=== PATIENT | male | born 1950 | race Caucasian/White ===

== ENCOUNTER 2016-05-19 10:49 | Emergency (ER) | payer OTHER, MEDICARE ==
[~2016-05-19] VITALS: Ht 157.5 cm; Wt 108.9 kg
[2016-05-19] MEDS ORDERED: RANI1TAB6 (11:16)
[2016-05-19] MEDS ORDERED: NS 500 ML IV ONE (13:00)
[2016-05-19] MEDS ORDERED: ONDANSETRON 4MG/2ML VIAL (J2405) IV ONE (13:00)
[2016-05-19] MEDS ORDERED: KETOROLAC 30 MG/ML VIAL (J1885) IV ONE (13:00)
[2016-05-19 13:33] LABS: BASO # 0.1 K/mm3 (0.0-0.2); BASO % 0.7 % (0.0-1.0); EOS % 0.4 % (0.0-3.0); LARGE UNSTAINED CELL # 0.1 K/mm3 (0.0-0.4); LYMPH # 0.9 K/mm3 (1.5-4.5); LYMPH % 8.6 % (24.0-44.0); MEAN CORPUSCULAR HEMOGLOBIN 26.8 pg (27.0-33.0); MEAN CORPUSCULAR HGB CONC 32.6 g/dl (32.0-36.5); MEAN CORPUSCULAR VOLUME 82.2 fl (80.0-96.0); MONO # 0.6 K/mm3 (0.0-0.8); MONO % 5.9 % (0.0-5.0); NEUTROPHILS # 8.1 K/mm3 (1.8-7.7); NEUTROPHILS % 83.3 % (36.0-66.0); PLATELET COUNT, AUTOMATED 241 k/mm3 (150-450); RED CELL DISTRIBUTION WIDTH 15.6 % (11.5-14.5); WHITE BLOOD COUNT 9.7 K/mm3 (4.0-10.0)
[2016-05-19 13:48] LABS: CREATININE FOR GFR 1.85 MG/DL (0.70-1.30)
--- NOTE | 2016-05-19 14:25 | REP ---
CT ABDOMEN AND PELVIS WITHOUT IV CONTRAST: CT abdomen and pelvis is performed. No IV contrast was administered. There is mild fibrotic changes in the visualized lung bases. The liver demonstrates a tiny cyst centrally. The spleen, adrenals and pancreas are unremarkable. There is edema surrounding the left kidney and left ureter with mild prominence of the renal pelvis. The findings likely represent a recently passed stone through the left ureter. No renal or ureteral calculus is seen currently and there is no evidence of a bladder calculus. There is no right hydronephrosis. There is mild scattered atherosclerotic calcification of the abdominal aorta without aneurysm. There is no adenopathy, free air or free fluid. No bowel inflammation is seen. There is no evidence of appendicitis. There is no evidence of a pelvic mass. IMPRESSION: Edema surrounding the left kidney and ureter with mildly prominent left renal pelvis likely represents a recently passed stone through the left ureter. Underlying pyelonephritis is not excluded. No fluid collection. No current evidence of renal, ureteral or bladder calculus. Signed by Larry Nur MD 05/19/2016 05:06 P
[2016-05-19] MEDS ORDERED: ZOFR4TAB3 PO (14:59)
[2016-05-19] MEDS ORDERED: ACET-159 PO (14:59)
[2016-05-19 15:26] VITALS: BP 136/84
== END 2016-05-19 15:29 | disposition home or self-care (01) ==
LOC: M ED 12:34
DX: N23 Unspecified renal colic (principal); N13.30 Unspecified hydronephrosis; R94.4 Abnormal results of kidney function studies
CPT/HCPCS: 36415; 74176; 80048; 81001; 85025; 87086; 96374; 96375; 99282; J1885; J2405

== ENCOUNTER → 2016-05-21 | Outpatient (CLI) | payer OTHER, MEDICARE ==
[~2016-05-21] MED LIST: ACET-159 PO; RANI1TAB6; ZOFR4TAB3 PO
[2016-05-21 07:55] LABS: CALCIUM LEVEL 8.3 MG/DL (8.8-10.2); CREATININE FOR GFR 1.59 MG/DL (0.70-1.30); GLOMERULAR FILTRATION RATE 46.5 (>49); POTASSIUM SERUM 4.1 MEQ/L (3.5-5.1)
== END ==
LOC: M LAB 06:50
PROVIDERS: ATTEND Physician Assistant Medical
DX: R94.4 Abnormal results of kidney function studies (principal)

== ENCOUNTER 2016-09-29 13:26 | Emergency (ER) | payer OTHER, MEDICARE ==
[~2016-09-29] VITALS: Ht 152.4 cm; Wt 113.6 kg
[2016-09-29] MEDS ORDERED: BAYE1TAB5 PO (13:38)
[2016-09-29] MEDS ORDERED: TYLE325T5 PO (13:38)
[2016-09-29 14:20] LABS: BASO # 0.1 K/mm3 (0.0-0.2); BASO % 1.1 % (0.0-1.0); EOS # 0.2 K/mm3 (0.0-0.50); EOS % 2.1 % (0.0-3.0); LARGE UNSTAINED CELL # 0.1 K/mm3 (0.0-0.4); LARGE UNSTAINED CELL % 1.6 % (0.0-4.0); LYMPH # 1.2 K/mm3 (1.5-4.5); LYMPH % 16.2 % (24.0-44.0); MEAN CORPUSCULAR HEMOGLOBIN 25.7 pg (27.0-33.0); MEAN CORPUSCULAR HGB CONC 31.2 g/dl (32.0-36.5); MEAN CORPUSCULAR VOLUME 82.3 fl (80.0-96.0); MONO # 0.6 K/mm3 (0.0-0.8); MONO % 8.3 % (0.0-5.0); NEUTROPHILS # 4.9 K/mm3 (1.8-7.7); NEUTROPHILS % 70.6 % (36.0-66.0); PLATELET COUNT, AUTOMATED 265 k/mm3 (150-450); RED CELL DISTRIBUTION WIDTH 16.4 % (11.5-14.5)
[2016-09-29 14:35] LABS: CALCIUM LEVEL 8.8 MG/DL (8.8-10.2); CREATININE FOR GFR 1.38 MG/DL (0.70-1.30); GLOMERULAR FILTRATION RATE 54.5 (>49)
--- NOTE | 2016-09-29 14:43 | REP ---
Duplex extremity venous ultrasound: Left lower extremity History: Left leg pain and swelling. Findings: The deep veins are anechoic and fully compressible from the groin to the popliteal fossa in the left lower extremity. Color flow imaging is homogeneous. Spectral Doppler interrogation demonstrates intact respiratory variation in flow and normal manual augmentation of flow. There is no evidence of deep vein thrombosis. Impression: Negative left lower extremity duplex venous ultrasound. No evidence of deep vein thrombosis. Signed by Alek Salamanca MD 09/29/2016 02:35 P
[2016-09-29 14:54] VITALS: BP 168/86
== END 2016-09-29 15:03 | disposition home or self-care (01) ==
LOC: M ED 13:26
DX: M79.662 Pain in left lower leg (principal); E78.5 Hyperlipidemia, unspecified; M54.9 Dorsalgia, unspecified; G89.29 Other chronic pain; K21.9 Gastro-esophageal reflux disease without esophagitis; F41.9 Anxiety disorder, unspecified; F32.9 Major depressive disorder, single episode, unspecified; F43.10 Post-traumatic stress disorder, unspecified; E66.9 Obesity, unspecified; Z87.442 Personal history of urinary calculi; Z87.891 Personal history of nicotine dependence

== ENCOUNTER 2016-11-04 09:04 | Emergency (ER) | payer MEDICARE ==
[~2016-11-04] VITALS: Ht 157.5 cm; Wt 114.1 kg
[~2016-11-04 09:04] MED LIST changes: +BAYE1TAB5 PO; +TYLE325T5 PO
[2016-11-04] MEDS ORDERED: IBUP-1022 PO (09:11)
[2016-11-04 10:03] VITALS: BP 181/95
== END 2016-11-04 10:20 | disposition home or self-care (01) ==
LOC: M ED 09:53
DX: K64.5 Perianal venous thrombosis (principal)

== ENCOUNTER → 2016-11-24 | Outpatient (REF) | payer MEDICARE ==
[~2016-11-24] MED LIST changes: +IBUP-1022 PO
== END ==
LOC: M SFHCCLAY 10:28
PROVIDERS: ATTEND Family Medicine
DX: Z11.59 Encounter for screening for other viral diseases (principal)
CPT/HCPCS: 86803; G0463

== ENCOUNTER → 2016-12-22 | Outpatient (REF) | payer MEDICARE | LOC: M SFHCCLAY 12:19 | PROVIDERS: ATTEND Family Medicine | DX: I10 Essential (primary) hypertension (principal); N18.3 Chronic kidney disease, stage 3 (moderate); Z53.8 Procedure and treatment not carried out for other reasons ==

== ENCOUNTER → 2017-09-17 | Outpatient (REF) | payer MEDICARE ==
[2017-09-17 16:51] LABS: ESTIMATED AVERAGE GLUCOSE 214 MG/DL (60-110); HEMOGLOBIN A1c 9.1 %
== END ==
LOC: M SFHCCLAY 13:51
DX: I10 Essential (primary) hypertension (principal); F32.1 Major depressive disorder, single episode, moderate; E11.9 Type 2 diabetes mellitus without complications
CPT/HCPCS: 83036

== ENCOUNTER → 2017-09-20 | Outpatient (REF) | payer MEDICARE ==
[2017-09-20 11:15] LABS: ANION GAP 6 MEQ/L (8-16); BLOOD UREA NITROGEN 16 MG/DL (7-18); CALCIUM LEVEL 8.9 MG/DL (8.8-10.2); CARBON DIOXIDE LEVEL 32 MEQ/L (21-32); CHLORIDE LEVEL 103 MEQ/L (98-107); CREATININE FOR GFR 1.45 MG/DL (0.70-1.30); GLOMERULAR FILTRATION RATE 51.4 (>49); GLUCOSE, FASTING 96 MG/DL (70-100); POTASSIUM SERUM 4.7 MEQ/L (3.5-5.1); SODIUM LEVEL 141 MEQ/L (136-145)
[2017-09-20 11:23] LABS: ESTIMATED AVERAGE GLUCOSE 128 MG/DL (60-110); HEMOGLOBIN A1c 6.1 %
== END ==
LOC: M SFHCCLAY 10:52
DX: E11.9 Type 2 diabetes mellitus without complications (principal); I10 Essential (primary) hypertension; F32.1 Major depressive disorder, single episode, moderate
CPT/HCPCS: 83036

== ENCOUNTER → 2018-04-05 | Outpatient (REF) | payer MEDICARE ==
[~2018-04-05] MED LIST changes: +ZOFR4TAB14 PO; -ZOFR4TAB3 PO
[2018-04-05 16:36] LABS: HEMATOCRIT 34.9 % (42.0-52.0); HEMOGLOBIN 10.6 g/dl (13.5-17.5); MEAN CORPUSCULAR HGB CONC 30.4 g/dl (32.0-36.5); MEAN CORPUSCULAR VOLUME 82.3 fl (80.0-96.0); PLATELET COUNT, AUTOMATED 311 10^3/uL (150-450); RED BLOOD COUNT 4.24 10^6/uL (4.30-6.10); WHITE BLOOD COUNT 9.1 10^3/uL (4.0-10.0)
[2018-04-05 16:44] LABS: ALBUMIN 3.6 GM/DL (3.2-5.2); BILIRUBIN,TOTAL 0.3 MG/DL (0.2-1.0); CREATININE FOR GFR 1.38 MG/DL (0.70-1.30); GLOMERULAR FILTRATION RATE 54.4 (>49); TOTAL PROTEIN 7.2 GM/DL (6.4-8.2)
[2018-04-05 16:53] LABS: HEMOGLOBIN A1c 6.3 %
== END ==
LOC: M SFHCCLAY 12:24
PROVIDERS: ATTEND Family Medicine
DX: E11.9 Type 2 diabetes mellitus without complications (principal); K92.2 Gastrointestinal hemorrhage, unspecified
CPT/HCPCS: 80053; 83036; 83540; 85027; G0463

== ENCOUNTER → 2018-09-02 | Outpatient (REF) | payer MEDICARE ==
[2018-09-02 12:52] LABS: HEMATOCRIT 35.2 % (42.0-52.0); HEMOGLOBIN 10.1 g/dl (13.5-17.5); MEAN CORPUSCULAR HEMOGLOBIN 22.7 pg (27.0-33.0); MEAN CORPUSCULAR HGB CONC 28.7 g/dl (32.0-36.5); MEAN CORPUSCULAR VOLUME 79.3 fl (80.0-96.0); PLATELET COUNT, AUTOMATED 338 10^3/uL (150-450); RED BLOOD COUNT 4.44 10^6/uL (4.30-6.10); WHITE BLOOD COUNT 7.8 10^3/uL (4.0-10.0)
[2018-09-02 12:59] LABS: PERCENT SATURATION 6.6 % (19.7-50.0)
== END ==
LOC: M SFHCCLAY 08:17
PROVIDERS: ATTEND Family Medicine
DX: D50.9 Iron deficiency anemia, unspecified (principal)

== ENCOUNTER → 2018-09-14 | Outpatient (REF) | payer MEDICARE ==
[2018-09-14 11:45] LABS: HEMATOCRIT 33.2 % (42.0-52.0); HEMOGLOBIN 9.7 g/dl (13.5-17.5); MEAN CORPUSCULAR HEMOGLOBIN 22.8 pg (27.0-33.0); MEAN CORPUSCULAR HGB CONC 29.2 g/dl (32.0-36.5); MEAN CORPUSCULAR VOLUME 78.1 fl (80.0-96.0); PLATELET COUNT, AUTOMATED 292 10^3/uL (150-450); RED BLOOD COUNT 4.25 10^6/uL (4.30-6.10); WHITE BLOOD COUNT 7.4 10^3/uL (4.0-10.0)
[2018-09-14 11:57] LABS: CALCIUM LEVEL 8.9 MG/DL (8.8-10.2); CREATININE FOR GFR 1.35 MG/DL (0.70-1.30); GLOMERULAR FILTRATION RATE 55.6 (>42); POTASSIUM SERUM 3.9 MEQ/L (3.5-5.1)
[2018-09-14 12:43] LABS: HEMOGLOBIN A1c 6.3 %
== END ==
LOC: M SFHCCLAY 07:47
PROVIDERS: ATTEND Family Medicine
DX: D50.9 Iron deficiency anemia, unspecified (principal); E11.9 Type 2 diabetes mellitus without complications

== ENCOUNTER 2018-10-20 09:09 | Day surgery (SDC) | payer MEDICARE ==
[~2018-10-20] VITALS: Ht 157.5 cm; Wt 83.0 kg
[~2018-10-20 09:09] MED LIST changes: +ACET1TAB55 PO; +ATOR1TAB19 PO; +CITA20TA6 PO; +FEROCAP3 PO; +GLIM2TAB PO; +HYDR12.55 PO; +METF500T13 PO; +MULT-40 PO; +NS 1,000 ML IV ONE; +OLME20TA2 PO; +OMEP10CASR PO; +VERA180C PO
[2018-10-20] MEDS ORDERED: LIDOCAINE 2% INJ 100 MG/5 ML SDV (FOR ANES.) As Ordered ONE (11:00)
[2018-10-20] MEDS ORDERED: PROPOFOL 200 MG/20 ML VIAL As Ordered ONE ×2 (11:00→11:29)
--- NOTE | 2018-10-20 11:08 | ROOR ---
Patient Name: Carl Dupree Procedure Date: 10/20/2018 10:55 AM Date of : 1950 Age: 68 Room: [facility] Gender: Male Note Status: Finalized Procedure: Upper GI endoscopy Indications: Iron deficiency anemia Providers: Miles Lord Jr, MD Referring MD: Jason Hutchins MD Requesting Provider: Medicines: Propofol per Anesthesia Complications: No immediate complications. Procedure: Pre-Anesthesia Assessment: - Prior to the procedure, a History and Physical was performed, and patient medications and allergies were reviewed. The patient is competent. The risks and benefits of the procedure and the sedation options and risks were discussed with the patient. All questions were answered and informed consent was obtained. Patient identification and proposed procedure were verified by the physician and the nurse in the pre-procedure area and in the procedure room. Mental Status Examination: alert and oriented. Airway Examination: normal oropharyngeal airway and neck mobility. Respiratory Examination: clear to auscultation. CV Examination: normal. ASA Grade Assessment: III - A patient with severe systemic disease. After reviewing the risks and benefits, the patient was deemed in satisfactory condition to undergo the procedure. The anesthesia plan was to use moderate sedation / analgesia (conscious sedation). Immediately prior to administration of medications, the patient was re-assessed for adequacy to receive sedatives. The heart rate, respiratory rate, oxygen saturations, blood pressure, adequacy of pulmonary ventilation, and response to care were monitored throughout the procedure. The physical status of the patient was re-assessed after the procedure. The Endoscope was introduced through the mouth, and advanced to the second part of duodenum. The upper GI endoscopy was accomplished without difficulty. The patient tolerated the procedure well. Findings: The upper third of the esophagus, middle third of the esophagus and lower third of the esophagus were normal. The cardia, gastric fundus, gastric body, gastric antrum, prepyloric region of the stomach and pylorus were normal. The duodenal bulb, first portion of the duodenum and second portion of the duodenum were normal. Impression: - Normal upper third of esophagus, middle third of esophagus and lower third of esophagus. - Normal cardia, gastric fundus, gastric body, antrum, prepyloric region of the stomach and pylorus. - Normal duodenal bulb, first portion of the duodenum and second portion of the duodenum. - No specimens collected. Recommendation: - Discharge patient to home (ambulatory). - Return to my office as previously scheduled. Miles Lord MD Miles Lord Jr, MD 10/20/2018 11:08:12 AM Electronically signed by Miles Lord Jr, MD Number of Addenda: 0 Note Initiated On: 10/20/2018 10:55 AM Estimated Blood Loss: Estimated blood loss: none.
--- NOTE | 2018-10-20 11:36 | ROOR ---
Patient Name: Carl Dupree Procedure Date: 10/20/2018 10:56 AM Date of : 1950 Age: 68 Room: [facility] Gender: Male Note Status: Finalized Procedure: Colonoscopy Indications: Iron deficiency anemia Providers: Miles Lord Jr, MD Referring MD: Jason Hutchins MD Requesting Provider: Medicines: Propofol per Anesthesia Complications: No immediate complications. Procedure: Pre-Anesthesia Assessment: - Prior to the procedure, a History and Physical was performed, and patient medications and allergies were reviewed. The patient is competent. The risks and benefits of the procedure and the sedation options and risks were discussed with the patient. All questions were answered and informed consent was obtained. Patient identification and proposed procedure were verified by the physician and the nurse in the pre-procedure area and in the procedure room. Mental Status Examination: alert and oriented. Airway Examination: normal oropharyngeal airway and neck mobility. Respiratory Examination: clear to auscultation. CV Examination: normal. ASA Grade Assessment: II - A patient with mild systemic disease. After reviewing the risks and benefits, the patient was deemed in satisfactory condition to undergo the procedure. The anesthesia plan was to use moderate sedation / analgesia (conscious sedation). Immediately prior to administration of medications, the patient was re-assessed for adequacy to receive sedatives. The heart rate, respiratory rate, oxygen saturations, blood pressure, adequacy of pulmonary ventilation, and response to care were monitored throughout the procedure. The physical status of the patient was re-assessed after the procedure. The Colonoscope was introduced through the anus and advanced to the cecum, identified by appendiceal orifice and ileocecal valve. The colonoscopy was performed without difficulty. The patient tolerated the procedure well. The quality of the bowel preparation was adequate. Findings: A few small-mouthed diverticula were found in the sigmoid colon. Seven polyps were found in the descending colon, transverse colon and ascending colon. The polyps were small in size. These polyps were removed with a hot snare. Resection was complete, but the polyp tissue was only partially retrieved. The rectum, recto-sigmoid colon, sigmoid colon, cecum, appendiceal orifice and ileocecal valve appeared normal. Non-bleeding external and internal hemorrhoids were found during endoscopy. The hemorrhoids were moderate, Grade II (internal hemorrhoids that prolapse but reduce spontaneously) and Grade III (internal hemorrhoids that prolapse but require manual reduction). Impression: - Diverticulosis in the sigmoid colon. - Seven small polyps in the descending colon, in the transverse colon and in the ascending colon, removed with a hot snare. Complete resection. Partial retrieval. - The rectum, recto-sigmoid colon, sigmoid colon, cecum, appendiceal orifice and ileocecal valve are normal. Recommendation: - Discharge patient to home (ambulatory). - Repeat colonoscopy in 3 years for surveillance. Miles Lord MD Miles Lord Jr, MD 10/20/2018 11:35:23 AM Electronically signed by Miles Lord Jr, MD Number of Addenda: 0 Note Initiated On: 10/20/2018 10:56 AM Estimated Blood Loss: Estimated blood loss: none. Estimated blood loss: none.
[2018-10-20 12:30] VITALS: BP 130/74
== END 2018-10-20 15:31 | disposition home or self-care (01) ==
LOC: M OPP 09:09
PROVIDERS: ATTEND Surgery
DX: D50.9 Iron deficiency anemia, unspecified (principal); D12.6 Benign neoplasm of colon, unspecified; K57.30 Diverticulosis of large intestine without perforation or abscess without bleeding; K64.1 Second degree hemorrhoids; K64.2 Third degree hemorrhoids; E11.9 Type 2 diabetes mellitus without complications; I12.9 Hypertensive chronic kidney disease with stage 1 through stage 4 chronic kidney disease, or unspecified chronic kidney disease; E78.00 Pure hypercholesterolemia, unspecified; R12 Heartburn; N18.3 Chronic kidney disease, stage 3 (moderate); F41.9 Anxiety disorder, unspecified; F32.9 Major depressive disorder, single episode, unspecified; Z79.84 Long term (current) use of oral hypoglycemic drugs; Z79.899 Other long term (current) drug therapy

== ENCOUNTER → 2021-10-24 | Outpatient (REF) | payer MEDICARE ==
[~2021-10-24] MED LIST changes: -GLIM2TAB PO; +GLIM2TAB4 PO; -NS 1,000 ML IV ONE; +RANI-397; -RANI1TAB6
[2021-10-24 18:09] LABS: APPEARANCE, URINE HAZY (CLEAR); BACTERIA, URINE AUTO NEGATIVE (NEGATIVE); BILIRUBIN, URINE AUTO NEGATIVE (NEGATIVE); BLOOD, URINE BLOOD NEGATIVE (NEGATIVE); COLOR, URINE YELLOW (YELLOW); GLUCOSE, URINE (UA) AUTO NEGATIVE (NEGATIVE); KETONE, URINE AUTO TRACE mg/dL (NEGATIVE); LEUKOCYTE ESTERASE, URINE AUTO 2+ (NEGATIVE); MUCUS, URINE SMALL (NEGATIVE); NITRITE, URINE AUTO NEGATIVE (NEGATIVE); PROTEIN, URINE AUTO 1+ mg/dL (NEGATIVE); RBC, URINE AUTO 0 /HPF (0-3); SPECIFIC GRAVITY URINE AUTO 1.026 (1.002-1.035); SQUAMOUS EPITHELIAL CELL UR AU 0 /HPF (0-6); UROBILINOGEN, URINE AUTO 0.2 mg/dL (0.0-2.0); WBC, URINE AUTO 14 /HPF (0-3)
[2021-10-24 18:24] LABS: HEMOGLOBIN A1c 6.9 %
[2021-10-24 18:59] LABS: ALBUMIN 3.5 GM/DL (3.2-5.2); BILIRUBIN,TOTAL 0.4 MG/DL (0.2-1.0); CHOLESTEROL RISK RATIO 2.48 (<5); CREATININE FOR GFR 1.46 MG/DL (0.70-1.30); GLOMERULAR FILTRATION RATE 50.4 (>42); TOTAL PROTEIN 6.8 GM/DL (6.4-8.2)
[2021-10-24 19:16] LABS: MALB URINE SIEMENS 42.4 MG/L; MAU/CREAT RATIO 13.2 MCG/MG (0.0-30.0)
== END ==
LOC: M SFHCCLAY 07:12
PROVIDERS: ATTEND Family Medicine
DX: E78.00 Pure hypercholesterolemia, unspecified (principal); I10 Essential (primary) hypertension; E11.9 Type 2 diabetes mellitus without complications; G24.9 Dystonia, unspecified; E66.01 Morbid (severe) obesity due to excess calories

== ENCOUNTER → 2021-11-25 | Outpatient (REF) | payer MEDICARE ==
[2021-11-25 11:51] LABS: CALCIUM LEVEL 9.4 MG/DL (8.8-10.2); CREATININE FOR GFR 1.5 MG/DL (0.70-1.30); GLOMERULAR FILTRATION RATE 48.8 (>42); POTASSIUM SERUM 3.7 MEQ/L (3.5-5.1)
== END ==
LOC: M SFHCCLAY 08:46
PROVIDERS: ATTEND Family Medicine
DX: I10 Essential (primary) hypertension (principal)

== ENCOUNTER → 2022-12-04 | Outpatient (CLI) | payer MEDICARE | LOC: M CLY 11:55 | PROVIDERS: ATTEND Family Medicine | DX: J45.30 Mild persistent asthma, uncomplicated (principal) ==

== ENCOUNTER → 2022-12-04 | Outpatient (CLI) | payer MEDICARE | LOC: M CLY 12:09 | PROVIDERS: ATTEND Family Medicine | DX: I50.9 Heart failure, unspecified (principal); J45.30 Mild persistent asthma, uncomplicated ==

== ENCOUNTER 2023-01-11 06:32 | Day surgery (SDC) | payer MEDICARE ==
[~2023-01-11] VITALS: Ht 157.5 cm; Wt 119.7 kg
[~2023-01-11 06:32] MED LIST changes: +CORICAP PO; +CYCLOPENTOLATE 1% OPHTH SOLN 2ML BTL OS SCH; +FLURBIPROFEN 0.03% OPHTH SOLN 2.5 ML OS SCH; +FLUT1BLS IH; +LIDOCAINE 1% SDV 5ML VIAL As Ordered ONE; +LR 1,000 ML IV SCH; +MONT10TA97 PO; +PHENYLEPHRINE 2.5% OPHTH SOL 2ML OS SCH; +TETRACAINE 0.5% OPHTH SOLN 4ML OS SCH; +VENTAER INH; +VICKOIN TOP
[2023-01-11] MEDS ORDERED: LIDOCAINE 1% SDV 5ML VIAL As Ordered ONE (06:41)
[2023-01-11] MEDS ORDERED: LR 1,000 ML IV SCH (07:00)
[2023-01-11] MEDS ORDERED: MIDAZOLAM INJ 2MG/2ML VIAL As Ordered ONE (07:07)
[2023-01-11] MEDS ORDERED: fentaNYL 100 MCG/2 ML INJECTION As Ordered ONE (07:07)
[2023-01-11] MEDS ORDERED: CEFUROXIME 1MG/0.1ML INTRACAMERAL INJ As Ordered ONE (07:58)
[2023-01-11 09:10] VITALS: BP 129/81; TEMP 97; O2SAT 93
== END 2023-01-11 09:35 | disposition home or self-care (01) ==
LOC: M SDC 06:32
PROVIDERS: ATTEND Ophthalmology
DX: H25.12 Age-related nuclear cataract, left eye (principal); E11.9 Type 2 diabetes mellitus without complications; R07.9 Chest pain, unspecified; E78.00 Pure hypercholesterolemia, unspecified; J45.909 Unspecified asthma, uncomplicated; Z87.891 Personal history of nicotine dependence; Z79.899 Other long term (current) drug therapy; Z79.84 Long term (current) use of oral hypoglycemic drugs; Z79.51 Long term (current) use of inhaled steroids
CPT/HCPCS: 66984; J0697; J2250; J3010; V2632

== ENCOUNTER → 2023-06-18 | Outpatient (REF) | payer MEDICARE ==
[~2023-06-18] MED LIST changes: -CYCLOPENTOLATE 1% OPHTH SOLN 2ML BTL OS SCH; -FLURBIPROFEN 0.03% OPHTH SOLN 2.5 ML OS SCH; -LIDOCAINE 1% SDV 5ML VIAL As Ordered ONE; -LR 1,000 ML IV SCH; -OLME20TA2 PO; +OLME20TA50 PO; -PHENYLEPHRINE 2.5% OPHTH SOL 2ML OS SCH; -TETRACAINE 0.5% OPHTH SOLN 4ML OS SCH
[2023-06-18 18:01] LABS: ALBUMIN 3.8 G/DL (3.2-5.2); BILIRUBIN,TOTAL 0.3 MG/DL (0.3-1.2); CALCIUM LEVEL 9.1 MG/DL (8.3-10.6); CHOLESTEROL RISK RATIO 2.95 (<5); CREATININE FOR GFR 1.49 MG/DL (0.70-1.30); GLOMERULAR FILTRATION RATE 49.1 (>42); HDL CHOLESTEROL 40.6 MG/DL (>40); LDL CHOLESTEROL 38.6 MG/DL (<100); NON-HDL-C 79.4 MG/DL; POTASSIUM SERUM 3.7 MMOL/L (3.5-5.1); TOTAL PROTEIN 6.9 G/DL (5.7-8.2)
[2023-06-18 18:12] LABS: CREATININE, URINE 294.3 MG/DL; MAU/CREAT RATIO 15.6 MCG/MG (0.0-30.0)
[2023-06-18 18:38] LABS: HEMOGLOBIN A1c 6.5 % (4.0-6.0)
== END ==
LOC: M SFHCCLAY 11:22
PROVIDERS: ATTEND Family Medicine
DX: E11.9 Type 2 diabetes mellitus without complications (principal); I10 Essential (primary) hypertension; E78.00 Pure hypercholesterolemia, unspecified; G24.9 Dystonia, unspecified; E66.01 Morbid (severe) obesity due to excess calories

== ENCOUNTER 2023-08-05 08:54 | Day surgery (SDC) | payer MEDICARE ==
[~2023-08-05] VITALS: Ht 157.5 cm; Wt 119.6 kg
[~2023-08-05 08:54] MED LIST changes: +FURO20TA2 PO; +HYDR-3490 PO
[2023-08-05] MEDS: NS 1,000 ML IV ONE (10:20)
[2023-08-05] MEDS ORDERED: propofoL 200 MG/20 ML VIAL As Ordered ONE (10:54)
[2023-08-05] MEDS ORDERED: LIDOCAINE 2% 100MG/5ML SDV (FOR ANES.) As Ordered ONE (10:55)
[2023-08-05 11:34] VITALS: TEMP 98.4
[2023-08-05 12:38] VITALS: BP 117/56; O2SAT 95
== END 2023-08-05 12:52 | disposition home or self-care (01) ==
LOC: M OPP 08:54
PROVIDERS: ATTEND Surgery
DX: Z12.11 Encounter for screening for malignant neoplasm of colon (principal); D12.4 Benign neoplasm of descending colon; D12.3 Benign neoplasm of transverse colon; D12.2 Benign neoplasm of ascending colon; K64.8 Other hemorrhoids; K44.9 Diaphragmatic hernia without obstruction or gangrene; K64.4 Residual hemorrhoidal skin tags; Z86.010 Personal history of colon polyps; K21.9 Gastro-esophageal reflux disease without esophagitis; K30 Functional dyspepsia; I10 Essential (primary) hypertension; E78.00 Pure hypercholesterolemia, unspecified; E11.9 Type 2 diabetes mellitus without complications; J45.909 Unspecified asthma, uncomplicated; Z79.899 Other long term (current) drug therapy; Z79.84 Long term (current) use of oral hypoglycemic drugs; Z87.891 Personal history of nicotine dependence

== ENCOUNTER → 2025-02-07 | Outpatient (REF) | payer MEDICARE ==
[~2025-02-07] MED LIST changes: -IBUP-1022 PO; +IBUP600T42 PO
[2025-02-07 17:33] LABS: IRON (FE) 34.0 UG/DL (65-175)
[2025-02-07 17:34] LABS: ALT/SGPT 18.0 U/L (7.0-40); AST/SGOT 15.0 U/L (<34); CALCIUM LEVEL 9.3 MG/DL (8.3-10.6); CARBON DIOXIDE LEVEL 30.0 MMOL/L (20-31); CHLORIDE LEVEL 102.0 MMOL/L (98-107); CHOLESTEROL LEVEL 139.0 MG/DL (<200); CHOLESTEROL RISK RATIO 2.78 (<5); CREATININE FOR GFR 1.52 MG/DL (0.70-1.30); GLOMERULAR FILTRATION RATE 47.2 (>42); LDL CHOLESTEROL 44.6 MG/DL (<100); NON-HDL-C 89.0 MG/DL; PERCENT SATURATION 9.7 % (19.7-50.0); POTASSIUM SERUM 4.2 MMOL/L (3.5-5.1); SODIUM LEVEL 143.0 MMOL/L (136-145); TRIGLYCERIDES LEVEL 222.0 MG/DL (<150)
[2025-02-07 17:43] LABS: PLATELET COUNT, AUTOMATED 293 10^3/uL (150-450)
[2025-02-07 17:46] LABS: ESTIMATED AVERAGE GLUCOSE 160.0 MG/DL (60-110)
[2025-02-07 17:47] LABS: MALB URINE SIEMENS 20.0 MG/L
[2025-02-07 18:03] LABS: CREATININE, URINE 315.6 MG/DL; MAU/CREAT RATIO 6.3 MCG/MG (0.0-30.0)
== END ==
LOC: M SFHCCLAY 10:29
PROVIDERS: ATTEND Physician Assistant
DX: M54.50 Low back pain, unspecified (principal); G24.9 Dystonia, unspecified; E11.9 Type 2 diabetes mellitus without complications; E78.00 Pure hypercholesterolemia, unspecified; I10 Essential (primary) hypertension; E66.01 Morbid (severe) obesity due to excess calories

== ENCOUNTER → 2025-03-19 | Outpatient (REF) | payer MEDICARE ==
[2025-03-19 18:37] LABS: PLATELET COUNT, AUTOMATED 288 10^3/uL (150-450)
[2025-03-19 18:44] LABS: IRON (FE) 69.0 UG/DL (65-175)
[2025-03-19 18:45] LABS: PERCENT SATURATION 20.7 % (19.7-50.0)
== END ==
LOC: M SFHCCLAY 09:21
PROVIDERS: ATTEND Physician Assistant
DX: D50.9 Iron deficiency anemia, unspecified (principal)